=== PATIENT | male | born 1965 | race African-American/Black ===

== ENCOUNTER 2021-01-29 13:33 | Outpatient (CLI) | payer OTHER, SELFPAY ==
--- NOTE | 2021-01-29 15:10 | WPDPFTINT ---
PFT Interpretation This is a pulmonary function test with spirometry. The test was performed and results interpreted in accordance with the 2019 and 2005 ATS/ERS Task Force guidelines respectively using the Global Lung Function Initiative-2012 reference equations. Patient demonstrated good effort and cooperation. Reproducibility criteria were met. The quality of the spirometry maneuver was Grade B. Findings: Spirometry:The contour of the inspiratory and expiratory flow tracing are normal. The FVC is 3.46 L, 86% predicted. The FEV1 is 2.39 L, 76% predicted. The FEV1: FVC ratio is 69%. Impression: The spirometry is normal without evidence of an obstructive abnormality. There are no prior studies for comparison
== END 2021-01-29 13:34 | disposition home or self-care (01) ==
PROVIDERS: PCP Family Medicine; Visit Provider Family Medicine
DX: R06.02 Shortness of breath (principal); F17.200 Nicotine dependence, unspecified, uncomplicated
CPT/HCPCS: 94375

== ENCOUNTER 2021-02-23 14:53 | Outpatient (CLI) | payer OTHER, SELFPAY | END 2021-02-23 14:54 | disposition home or self-care (01) | LOC: ANHCOVIDVC 14:53 | PROVIDERS: PCP Family Medicine | DX: Z23 Encounter for immunization (principal) | CPT/HCPCS: 0001A; 91300 ==

== ENCOUNTER 2021-03-16 14:57 | Outpatient (CLI) | payer OTHER, SELFPAY | END 2021-03-16 14:58 | disposition home or self-care (01) | LOC: ANHCOVIDVC 14:58 | PROVIDERS: PCP Family Medicine | DX: Z23 Encounter for immunization (principal) | CPT/HCPCS: 0002A; 91300 ==

== ENCOUNTER 2022-12-27 10:55 | Outpatient (CLI) | payer OTHER, SELFPAY ==
--- NOTE | ~2022-12-27 | XR_ITS ---
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 Comparison: 11/30/2009. RESULT: Lines, tubes, and devices: Cholecystectomy clips. Lungs and pleura: Clear. Cardiomediastinal silhouette: Stable. Other: No acute osseous or upper abdominal finding. IMPRESSION: No acute cardiopulmonary process. Reviewed, dictated and finalized at location K. MANAGER
--- NOTE | ~2022-12-27 | XR_ITS ---
EXAM: XR shoulder RT min 2V DATE: 12/27/2022 11:21 HISTORY: M25.511 - Pain in right shoulder, AC JOINT PAIN, NO INJURY . COMPARISON: None available. FINDINGS: Normal mineralization. No fracture or dislocation. No lytic or blastic lesion. Mild degene rative change in the AC joint and glenohumeral joint. No erosion or periosteal change. Soft tissues w ithin normal limits. IMPRESSION: Mild polyarticular right shoulder osteoarthritis.. Reviewed, dictated and finalized at location K. RAFT MAINTENANCE MANAGER
[2022-12-27 11:26] LABS: Basophils Absolute Auto 0.1 K/mm3 (0.0-0.1); Basophils Percent Auto 1.1 % (0.2-1.2); Eosinophils Absolute Auto 0.1 K/mm3 (0-0.3); Eosinophils Percent Auto 1.4 % (0-4.4); Hemoglobin 14.5 g/dL (14.0-18.0); Immature Granulocyte Absolute 0.02 K/mm3 (0.00-0.031); Immature Granulocyte Percent A 0.3 % (0-0.5); Lymphocytes Absolute Auto 1.89 K/mm3 (0.9-3.2); Lymphocytes Percent Auto 29.8 % (18.3-44.2); Mean Corpuscular HGB Conc 32.2 g/dl (32-36); Mean Corpuscular Hemoglobin 29.1 pg (26-34); Mean Corpuscular Volume 90.2 fl (80-100); Mean Platelet Volume 10.9 fl (7.4-10.4); Monocytes Absolute Auto 0.8 K/mm3 (0.1-0.6); Monocytes Percent Auto 13.1 % (2.6-8.5); Neutrophils Absolute Auto 3.5 K/mm3 (1.3-6.7); Neutrophils Percent Auto 54.3 % (45.5-73.1); Platelet Count Result 269 k/mm3 (150-375); Red Blood Count 4.99 M/mm3 (4.6-6.20); Red Cell Distribution Width 12.3 % (11.5-14.5); White Blood Count 6.4 K/mm3 (4.5-10.0)
[2022-12-27 11:37] LABS: Alanine Aminotransferase 22 U/L (6-50); Albumin Level 4.5 g/dL (3.5-5.1); Alkaline Phosphatase 80 U/L (38-126); Anion Gap 4 mmol/L (8-16); Aspartate Amino Transferase 23 U/L (17-59); Bilirubin,Total 0.5 mg/dL (0.2-1.3); Blood Urea Nitrogen 14 mg/dL (9-20); Calcium 9.5 mg/dL (8.4-10.2); Carbon Dioxide 31 mmol/L (22-30); Chloride 100 mmol/L (98-107); Cholesterol 129 mg/dL (0-200); Estimated Glomerular Filt Rate > 60; Glucose 106 mg/dL (65-110); HDL Direct 45 mg/dL; Potassium 3.9 mmol/L (3.4-5.0); Sodium 135 mmol/L (137-145); Triglycerides 76 mg/dL (<150)
[2022-12-27 11:48] LABS: LDL Cholesterol Direct 57 mg/dL
[2022-12-27 12:15] LABS: Hemoglobin A1C 5.6 % (<5.7)
== END 2022-12-27 10:56 | disposition home or self-care (01) ==
PROVIDERS: PCP Family Medicine; Visit Provider Nurse Practitioner Gerontology
DX: R06.02 Shortness of breath (principal); F17.200 Nicotine dependence, unspecified, uncomplicated; E66.9 Obesity, unspecified; F52.21 Male erectile disorder; I10 Essential (primary) hypertension; M19.011 Primary osteoarthritis, right shoulder
CPT/HCPCS: 36415; 71046; 73030; 80053; 80061; 82607; 83036; 84443; 85025

== ENCOUNTER → 2023-07-07 10:58 | Outpatient (CLI) | payer OTHER, SELFPAY ==
--- NOTE | ~2023-07-07 | CT_ITS ---
EXAMINATION: CT lung screening DATE: 07/07/2023 11:21 INDICATION: Personal history of nicotine dependence TECHNIQUE: Computed tomography (CT) of the chest was performed without intravenous contrast. The dose -length product was 234.70 mGy-cm.. Automated exposure control and iterative reconstruction technique were employed. COMPARISON: Chest x-ray dated 12/27/2022 FINDINGS: No significant pleural or pericardial effusion. No thoracic lymphadenopathy. Status post ch olecystectomy. Heart size normal. There are miliary nodules with reticulonodular infiltrates in both lungs, right greater than left. There are groundglass opacities in the right lung. Findings are most likely infectious/inflammatory. Largest nodule measures approximately 2 mm. No pneumothorax. Moderate thoracic spondylosis. No endobronchial lesions. There is emphysema. IMPRESSION: 1. Lung-RADS category 2: Benign appearance or behavior. Continue annual screening with noncontrast lo w-dose chest CT in 12 months. Reviewed, dictated and finalized at location B. IMPRESSION: 1. Lung-RADS category 2: Benign appearance or behavior. Continue annual screeni ng with noncontrast low-dose chest CT in 12 months.
== END ==
PROVIDERS: PCP Physician Assistant; Visit Provider Physician Assistant
DX: Z12.2 Encounter for screening for malignant neoplasm of respiratory organs (principal); F17.210 Nicotine dependence, cigarettes, uncomplicated
CPT/HCPCS: 71271

== ENCOUNTER 2023-07-24 14:36 | Emergency (ER) | payer OTHER, SELFPAY ==
[2023-07-24 14:59] VITALS: BP 106/67; PULSE 112; RESP 20; TEMP 36.7; O2SAT 100
--- NOTE | 2023-07-24 15:23 | ED.URI ---
HPI - URI/Sore Throat General Chief Complaint: Upper Respiratory Infection Stated Complaint: Chills;Fever Time Seen by Provider: 07/24/23 15:09 Source: patient, family () and RN notes reviewed Mode of arrival: ambulatory Limitations: no limitations History of Present Illness HPI Narrative: Patient presents today with a 4 day history of fatigue, chills, low-grade fever, congestion and rhinorrhea, diarrhea. Denies cough, sore throat, vomiting, abdominal pain. He has been taking Zyrtec D and Zicam with some relief. Related Data Home Medications Medication Instructions Recorded Confirmed hydralazine 50 mg tablet 25 mg PO BID 07/24/23 07/24/23 Allergies Allergy/AdvReac Type Severity Reaction Status Date / Time Penicillins Allergy Mild unknown Verified 07/24/23 14:48 Review of Systems Review of Systems: CONSTITUTIONAL: Denies body aches, or sweats.+ fever, chills, fatigue EYES: Denies visual changes, redness, or discharge. ENT: Denies rhinorrhea, sore throat, or otalgia.+ congestion CARDIOVASCULAR: Denies chest pain, palpitations, or edema. RESPIRATORY: Denies cough or dyspnea. GASTROINTESTINAL: Denies abdominal pain, vomiting. + diarrhea, nausea GENITOURINARY: Denies dysuria or hematuria. SKIN: Denies rash, itching, or wounds. MUSCULOSKELETAL: Denies back pain, joint pain, or myalgia. NEUROLOGIC: Denies headache, numbness, tingling, or weakness. PSYCH: Denies depression or anxiety. PMFSH Past Medical History Medical History Benign essential HTN Erectile disorder, acquired, situational, mild Smoker Family History Family History Father Family history of lung cancer Mother Family history of lung cancer Sibling Family history of lung cancer Social History Social History Social History: Smoking packs per day: 0.5 Smoking cigarettes per day: 10.0 Years smoked: 5 Smoking pack-years: 2.50 Smoking status: Current every day smoker Tobacco type: cigarettes Second hand tobacco smoke exposure: Yes Alcohol intake: current Drinks per week: 6 Substance use: never Substance use type: does not use Living arrangements: with family Occupation/Education: occupation Gender identity (if verbalized by the patient): Male Comments At time of signature, I have reviewed and agree with nursing past medical, surgical, social and family history unless otherwise noted. Please see nursing chart for further information. There is no relevant family history pertinent to the presenting complaint Exam Narrative: GENERAL: Mildly ill appearing, well-nourished, and in no acute distress. HEAD: Normocephalic, atraumatic. EYES: EOMI. No redness or drainage. Conjunctivae normal. ENT: Mucous membranes pink and moist. Nares clear. No rhinorrhea. TMs normal bilaterally. Throat normal. Uvula midline. NECK: Normal AROM. Supple. No lymphadenopathy. CHEST: No respiratory distress. Clear to auscultation. HEART: Regular rate and rhythm. No murmur appreciated. Normal peripheral pulses. ABDOMEN: nondistended, normal active bowel sounds. MUSCULOSKELETAL: No bony tenderness. EXTREMITIES: Normal range of motion. No edema. SKIN: Warm, no rash. Capillary refill normal. Normal skin turgor. Diaphoretic NEURO: No focal deficits. Alert and oriented x3. Gait steady. PSYCH: Normal affect. No signs of depression or anxiety. Course Course Level of Care: Express Care Visit Vital Signs Vital signs: Vital Signs Temperature 98.1 F 07/24/23 14:59 Pulse Rate 112 H 07/24/23 14:59 Respiratory Rate 07/24/23 14:59 Blood Pressure 106/67 07/24/23 14:59 Pulse Oximetry 100 07/24/23 14:59 Oxygen Delivery Room Air 07/24/23 14:59 Temperature 98.1 F 07/24/23 14:59 Pulse Rate 112 H 07/24/23 14:59 Respiratory Rate 07/24/23 14:59 Blood Pressure 10
== END 2023-07-24 15:33 | disposition home or self-care (01) ==
PROVIDERS: Emergency Provider Nurse Practitioner; PCP Family Medicine
DX: B34.9 Viral infection, unspecified (principal); Z20.822 Contact with and (suspected) exposure to COVID-19; F17.210 Nicotine dependence, cigarettes, uncomplicated; I10 Essential (primary) hypertension
CPT/HCPCS: 87426; 87804; 99213; C9803; G0463

== ENCOUNTER 2023-12-29 10:39 | Outpatient (CLI) | payer OTHER, SELFPAY ==
[2023-12-29 10:57] LABS: Basophils Absolute Auto 0.1 K/mm3 (0.0-0.1); Basophils Percent Auto 1.1 % (0.2-1.2); Eosinophils Absolute Auto 0.1 K/mm3 (0-0.3); Eosinophils Percent Auto 1.7 % (0-4.4); Hematocrit 47.3 % (42.0-52.0); Immature Granulocyte Absolute 0.02 K/mm3 (0.00-0.031); Immature Granulocyte Percent A 0.3 % (0-0.5); Lymphocytes Percent Auto 29.9 % (18.3-44.2); Mean Corpuscular HGB Conc 31.7 g/dl (32-36); Mean Corpuscular Hemoglobin 29.5 pg (26-34); Mean Corpuscular Volume 92.9 fl (80-100); Mean Platelet Volume 10.4 fl (7.4-10.4); Monocytes Absolute Auto 0.8 K/mm3 (0.1-0.6); Monocytes Percent Auto 11.9 % (2.6-8.5); Neutrophils Absolute Auto 3.5 K/mm3 (1.3-6.7); Neutrophils Percent Auto 55.1 % (45.5-73.1); Platelet Count Result 229 k/mm3 (150-375); Red Blood Count 5.09 M/mm3 (4.6-6.20); Red Cell Distribution Width 12.8 % (11.5-14.5); White Blood Count 6.4 K/mm3 (4.5-10.0)
[2023-12-29 11:09] LABS: Alanine Aminotransferase 21 U/L (6-50); Albumin Level 4.3 g/dL (3.5-5.1); Alkaline Phosphatase 81 U/L (38-126); Anion Gap 3 mmol/L (8-16); Aspartate Amino Transferase 32 U/L (17-59); Bilirubin,Total 0.9 mg/dL (0.2-1.3); Blood Urea Nitrogen 9 mg/dL (9-20); Carbon Dioxide 32 mmol/L (22-30); Chloride 102 mmol/L (98-107); Cholesterol 128 mg/dL (0-200); Estimated Glomerular Filt Rate > 60; Glucose 107 mg/dL (65-110); HDL Direct 52 mg/dL; Sodium 137 mmol/L (137-145); Triglycerides 83 mg/dL (<150)
[2023-12-29 11:20] LABS: LDL Cholesterol Direct 59 mg/dL
== END 2023-12-29 10:40 | disposition home or self-care (01) ==
LOC: ANHLAB 10:42
PROVIDERS: PCP Family Medicine; Visit Provider Physician Assistant
DX: Z13.220 Encounter for screening for lipoid disorders (principal); I10 Essential (primary) hypertension; F17.200 Nicotine dependence, unspecified, uncomplicated
CPT/HCPCS: 36415; 80053; 80061; 85025

== ENCOUNTER 2025-01-03 08:45 | Outpatient (CLI) | payer OTHER, SELFPAY ==
--- OUTSIDE RECORDS SUMMARY | 2025-01-03 09:13 | XMS_ITS | Clinical Summary ---
Author Organization [facility] Address [address] [address] Phone Care Team Providers Care Supervisor Nuclear Medicine Name Role Phone Unavailable Primary Care Provider Unavailabl e Allergies Active Allergy Reactions Criticality Noted Date Comments Penicillins Hallucinations 09/10/2021 Medications omeprazole (PriLOSEC) 40 MG CAPSULE DELAYED RELEASE 07/08/2021 Active Tadalafil 5 MG Tablet 05/29/2021 Active VITAMIN D PO Take by mouth. Active Cyanocobalamin (B-12 PO) Take by mouth. Active amLODIPine (NORVASC) 5 MG Tablet Take 1 Tablet by mouth daily. 90 Tablet 12/10/2021 Active irbesartan-hydro CHLOROthiazide (AVALIDE) 300-12.5 MG Tablet TAKE 1 TABLET BY MOUTH EVERY DAY 90 Tablet 1 06/13/2023 Active Active Problems Problem Noted Date Diagnosed Date Primary hypertension 09/10/2021 GERD (gastroesophageal reflux disease) Immunizations Immunization Administration Dates Next Due Covid-19, Mrna, Lnp-s, Pf, 30 Mcg/0.3 Ml Dose (P fizer) 10/28/2021 Family History Medical History Relation Name Comments Cancer Father Cancer Mother Relation Name Status Comments Father Mother Social History Tobacco Use Types Packs/Day Years Used Date Smoking Tobacco: Every Day Smokeless Tobacco: Never Tobacco Cessation:Ready to Q uit: No; Counseling Given: No Alcohol Use Standard Drinks/Week Comments Yes 0 (1 standard drink = 0.6 oz pur e alcohol) PHQ-2 Answer Date Recorded Total Score - Questions 1-9 0 08/14 Sex and Gender Information Value Date Recorded Sex Assigned at Not on file Legal Sex Male 11:38 AM CDT Gender Identity Not on file Sexual Orientation Not on file Last Filed Vital Signs Vital Sign Reading Time Taken Comments Blood Pressure 154/94 09/10/2021 9:36 AM CDT Pulse 62 09/10/2021 9:36 AM CDT Temperature 36.4 C (97.5 F) 09/10/2021 9:36 AM CDT Respiratory Rate 12 09/10/2021 9:36 AM CDT Oxygen Saturation 99% 09/10/2021 9:36 AM CDT Inhaled Oxygen Concentration - - Weight 114.9 kg (253 lb 3.2 oz) 09/10/2021 9:36 AM CDT Height 176.5 cm (5' 9.5 ) 09/10/2021 9:36 AM CDT Body Mass Index 36.86 09/10/2021 9:36 AM CDT Plan of Treatment Health Maintenance Due Date Last Done Comments Hepatitis C Virus (HCV) Screening 1965 TdaP Immunization 1965 Colonoscopy 2008 Colorectal Cancer Screening 2008 Cologuard 2013 Immunochemical Fecal Occult Blood 2013 Pneumococcal Immunization (5 0+ years) (1 of 1 - PCV) 2013 Zoster Immunization (1 of 2) 2013 PSA Discussion 2018 Influenza Immunization (#1) 2024 SARS-COV-2 Immunization ( season) 2024 10/28/2021, 03/16/2021, 02/23/2021 Respiratory Syncytial Virus (RSV) Immunization (Adult) (1 - 1-dose 75+ series) 2038 Hepatitis B Immunization Aged Out No longer eligible based on patient's age to complete this topic Meningococcal Immunization (ACWY) Aged Out No longer eligible b ased on patient's age to complete this topic Pneumococcal Immunization Combined Aged Out No longer eligible b ased on patient's age to complete this topic Rotavirus Immunization Aged Out No lo nger eligible based on patient's age to complete this topic [facility]
--- OUTSIDE RECORDS SUMMARY | 2025-01-03 09:13 | XMS_ITS | Encounter Summary ---
Author Organization [facility] Address [address] [place] [address] Phone Care Team Providers Care Fuel Cell Technician Name Role Phone Milady Berger PAC Primary Care Pro vider Reason for Visit * Reason Comments Medication Refill Encounter Details Date Type Department Care Team (Late st Contact Info) Description 12/05/2023 Refill [facility] - [facility] Medicine - [place] [address] [place] [id number] Milady Berger PAC [address] [place] [address] Medication Refill Social History Tobacco Use Types Packs/Day Years Used Date Smoking Tobacco: Every Day Smokeless Tobacco: Never Alcohol Use Standard Drinks/Week Comments Yes 0 (1 standard drink = 0.6 oz pur e alcohol) PHQ-2 Answer Date Recorded Total Score - Questions 1-9 0 08/14 Sex and Gender Information Value Date Recorded Sex Assigned at Not on file Legal Sex Male 11:38 AM CDT Gender Identity Not on file Sexual Orientation Not on file documented as of this encounter Plan of Treatment Not on file documented as of this encounter Visit Diagnoses Not on filedocumented in this encounter Additional Health Concerns Assessment Noted Time PHQ-9 Depression Total Score: 0 09/10/20 9:00 AM CDT documented as of this encounter Care Teams Fuel Cell Technician Relationship Specialty Start Date End Date Milady Berger PAC [address] [place] [address] PCP - General Physician Shell Coremaker 08/31/21 04/03/24 documented as of this encounter
--- OUTSIDE RECORDS SUMMARY | 2025-01-03 09:13 | XMS_ITS | Encounter Summary ---
Author Organization [facility] Address [address] [place] [address] Phone Care Team Providers Care Conservation Biology Professor Name Role Phone Milady Berger PAC Primary Care Pro vider Reason for Visit * Reason Comments Medication Refill Encounter Details Date Type Department Care Team (Late st Contact Info) Description 06/13/2023 Refill [facility] - Internal Medicine - [place] [address] [place] [address] Milady Berger, PAC [address] [place] [address] Medication Refill Social History Tobacco Use Types [...] on file documented as of this encounter Miscellaneous Notes * Telephone Encounter - Lorelei Brown RN - 06/13/2023 9:27 AM CDT Medication failed the protocol, provider to review and approve the medication order if appropriate. Requested Prescriptions Pending Prescriptions Disp Refills irbesartan-hydroCHLOROthiazide (AVALIDE) 300-12.5 MG Tablet [Pharmacy Med Name: IRBESARTAN-HCTZ 300-12.5 MG TB] 90 Tablet 1 Sig: TAKE 1 TABLET BY MOUTH EVERY DAY ANGIOTENSIN-II RECEPTOR BLOCKERS-DIURETICS COMBO PROTOCOL Failed - 06/13/2023 12:10 AM Failed - Serum potassium on record in past 12 months No results found for: POTASSIUM, POCTK Failed - Serum sodium on record in past 12 months No results found for: SODIUM Failed - BP on record in the past year Clinician-entered: BP Readings from Last 3 Encounters: 09/10/21 (!) 154/94 Patient-entered: No data recorded Failed - Visit with relevant provider in past year or upcoming 90 days Recent Visits No visits were found meeting these conditions. Showing recent visits within past 365 days and meeting all other requirements Future Appointments No visits were found meeting these conditions. Showing future appointments within next 90 days and meeting all other requirements Failed - GFR on record in past 12 months No results found for: GFRNA documented in this encounter Plan of Treatment Not on file documented as of this encounter Visit Diagnoses Not on filedocumented in this encounter Additional Health Concerns Assessment Noted Time PHQ-9 Depression Total Score: 0 09/10/20 9:00 AM CDT documented as of this encounter Care Teams Conservation Biology Professor Relationship Specialty Start Date End Date Milady Berger PAC [address] [place], [place] [address] PCP - General Physician Zoning Assistant 08/31/21 04/03/24 documented as of this encounter
--- OUTSIDE RECORDS SUMMARY | 2025-01-03 09:13 | XMS_ITS | Encounter Summary ---
Author Organization [facility] Address [address] [facility] [place] [address] Phone Care Team Providers Care Ball Mill Operator Name Role Phone Milady Berger PAC Primary Care Pro vider Reason for Visit * Reason Comments Medication Refill Encounter Details Date Type Department Care Team (Late st Contact Info) Description 12/07/2022 Refill [facility] - [facility] Medicine - [place] [address] [place] [address] Rommel Nicole MD [address] [place] [address] Medication Refill Social History Tobacco [...] Telephone Encounter - Lorelei Brown RN - 12/07/2022 8:38 AM CST Pt needs appointment, Last OV 09/10/21 Medication failed the protocol, provider to review and approve the medication order if appropriate. Requested Prescriptions Pending Prescriptions Disp Refills irbesartan-hydroCHLOROthiazide (AVALIDE) 300-12.5 MG Tablet [Pharmacy Med Name: IRBESARTAN-HCTZ 300-12.5 MG TB] 90 Tablet 1 Sig: TAKE 1 TABLET BY MOUTH EVERY DAY ANGIOTENSIN-II RECEPTOR BLOCKERS-DIURETICS COMBO PROTOCOL Failed - 12/07/2022 12:05 AM Failed - Serum potassium on record [...] 12 months No results found for: GFRNA GING MACHINE OPERATOR documented in this encounter Plan of Treatment Not on file documented as of this encounter Visit Diagnoses Not on filedocumented in this encounter Additional Health Concerns Assessment Noted Time PHQ-9 Depression Total Score: 0 09/10/20 9:00 AM CDT documented as of this encounter Care Teams Ball Mill Operator Relationship Specialty Start Date End Date Milady Berger PAC [address] [place] [address] PCP - General Physician Wind Turbine Mechanic 08/31/21 04/03/24 documented as of this encounter
[2025-01-03 09:29] LABS: Basophils Percent Auto 0.7 % (0.2-1.2); Eosinophils Absolute Auto 0.1 K/mm3 (0-0.3); Eosinophils Percent Auto 1.2 % (0-4.4); Hematocrit 44.9 % (42.0-52.0); Hemoglobin 14.7 g/dL (14.0-18.0); Immature Granulocyte Absolute 0.02 K/mm3 (0.00-0.031); Immature Granulocyte Percent A 0.3 % (0-0.5); Lymphocytes Percent Auto 34.9 % (18.3-44.2); Mean Corpuscular HGB Conc 32.7 g/dl (32-36); Mean Corpuscular Hemoglobin 30.4 pg (26-34); Mean Platelet Volume 10.9 fl (7.4-10.4); Monocytes Absolute Auto 0.6 K/mm3 (0.1-0.6); Monocytes Percent Auto 10.1 % (2.6-8.5); Neutrophils Absolute Auto 3.2 K/mm3 (1.3-6.7); Neutrophils Percent Auto 52.8 % (45.5-73.1); Platelet Count Result 233 k/mm3 (150-375); Red Blood Count 4.83 M/mm3 (4.6-6.20); Red Cell Distribution Width 11.9 % (11.5-14.5)
[2025-01-03 09:41] LABS: Alanine Aminotransferase 29 U/L (6-50); Albumin Level 4.3 g/dL (3.5-5.1); Alkaline Phosphatase 78 U/L (38-126); Anion Gap 8 mmol/L (4-12); Aspartate Amino Transferase 29 U/L (17-59); Bilirubin,Total 0.7 mg/dL (0.2-1.3); Blood Urea Nitrogen 11 mg/dL (9-20); Calcium 10.1 mg/dL (8.4-10.2); Carbon Dioxide 31 mmol/L (22-30); Chloride 101 mmol/L (98-107); Cholesterol 129 mg/dL (0-200); Estimated Glomerular Filt Rate > 60; Glucose 97 mg/dL (65-110); HDL Direct 44 mg/dL; Potassium 3.9 mmol/L (3.4-5.0); Sodium 140 mmol/L (137-145); Triglycerides 84 mg/dL (<150)
[2025-01-03 09:52] LABS: LDL Cholesterol Direct 63 mg/dL
[2025-01-03 09:58] LABS: Hemoglobin A1C 5.5 % (<5.7)
[2025-01-03 10:15] LABS: Prostate Specific Antigen 1.2 ng/mL (< OR = 4.0)
== END 2025-01-03 08:46 | disposition home or self-care (01) ==
PROVIDERS: PCP Family Medicine; Visit Provider Physician Assistant
DX: Z00.00 Encounter for general adult medical examination without abnormal findings (principal); Z12.5 Encounter for screening for malignant neoplasm of prostate; Z13.220 Encounter for screening for lipoid disorders; Z13.1 Encounter for screening for diabetes mellitus; I10 Essential (primary) hypertension; E66.9 Obesity, unspecified
CPT/HCPCS: 36415; 80053; 80061; 83036; 84153; 85025; G0103